=== PATIENT | female | born 1960 | race Caucasian/White ===

== ENCOUNTER 2017-01-14 12:17 | Emergency (ER) | payer BC ==
[2017-01-14 11:52] LABS: BASOPHILS 0.2 %; BASOPHILS ABSOLUTE 0.02 10/3/uL (0.0-0.16); EOSINOPHILS 1.7 %; EOSINOPHILS ABSOLUTE 0.16 10/3/uL (0.0-0.53); ER CBC TAT 0 Hrs 05 Mins; IMMATURE GRANULOCYTES 0.5 %; IMMATURE GRANULOCYTES ABSOLUTE 0.05 10/3/uL (0.0-0.11); LYMPHOCYTES 22.9 %; MANUAL DIFF NO %; MEAN CORPUS HGB CONC 34.1 g/dL (32.0-36.0); MEAN CORPUSCULAR HEMOGLOB 33.7 pg (26.0-34.0); MEAN CORPUSCULAR VOLUME 98.6 fL (80-100); MONOCYTES ABSOLUTE 0.48 10/3/uL (0.21-1.20); NEUTROPHILS 69.7 %; NEUTROPHILS ABSOLUTE 6.68 10/3/uL (2.02-8.40); PLATELET COUNT 286 10/3/uL (150-400); RBC DISTRIBUTION WIDTH 14.1 % (12.0-16.0); RED CELL COUNT 4.16 10/6/uL (4.0-5.6); WHITE BLOOD CELLS 9.6 10/3/uL (4.5-10.5)
[2017-01-14 12:07] LABS: BUN (BLOOD UREA NITROGEN) 9 MG/DL (6-23); CALCIUM, SERUM 9.2 MG/DL (8.5-10.4); CHEST PAIN PROFILE TAT 0 Hrs 20 Mins; CHLORIDE, SERUM 103 MMOL/L (96-112); CO2 (CARBON DIOXIDE) 25 MMOL/L (24-34); GFR AFRICAN AMERICAN 72 ML/MIN (>=60); GFR NON AFRICAN AMERICAN 62 ML/MIN (>=60); GLUCOSE, SERUM 149 MG/DL (60-99); SODIUM, SERUM 140 MMOL/L (135-148); TROPONIN I <0.02 NG/ML (<0.05)
[2017-01-14 12:09] LABS: POTASSIUM, SERUM 4.8 MMOL/L (3.5-5.3)
[~2017-01-14 12:17] MED LIST: ASAB PO; COREG6 PO; EFFIENT10 PO; LOP25 PO; OLIVE OIL PO; PRILOSEC10 MG PO; PRIN2.5 PO; VITAMIN D31000 UNIT PO; VIVELLE SY0.1 MG/24 TOP
[2017-01-14] MEDS ORDERED: ASAB PO (12:26)
[2017-01-14] MEDS ORDERED: LOP25 PO (12:26)
[2017-01-14] MEDS ORDERED: VITAMIN D1000 UNI1 PO (12:29)
[2017-01-14] MEDS ORDERED: ATV1 PO (12:30)
[2017-01-14] MEDS ORDERED: ACET500CAP PO (12:31)
[2017-01-14] MEDS ORDERED: REFRESH OPH (12:31)
== END 2017-01-14 14:48 | disposition home or self-care (01) ==
LOC: ER 12:17
PROVIDERS: Hospitalist
DX: R07.89 Other chest pain (principal); Z87.891 Personal history of nicotine dependence; F41.9 Anxiety disorder, unspecified; K21.9 Gastro-esophageal reflux disease without esophagitis; I25.2 Old myocardial infarction; I25.10 Atherosclerotic heart disease of native coronary artery without angina pectoris; Z95.5 Presence of coronary angioplasty implant and graft; Z88.5 Allergy status to narcotic agent; Z88.8 Allergy status to other drugs, medicaments and biological substances; Z79.899 Other long term (current) drug therapy; Z79.82 Long term (current) use of aspirin
CPT/HCPCS: 71010; 80048; 83735; 84484; 85025; 85610; 85730; 93005; 99285; A9270-GY